=== PATIENT | male | born 1980 | race American Indian/Alaskan Native ===

== ENCOUNTER 2016-03-04 15:18 | Emergency (ER) | payer SELFPAY ==
[2016-03-04 20:30] VITALS: BP 123/86
--- NOTE | 2016-03-04 20:44 | Emergency Department Report ---
ED Upper Extremity Inj HPI - General Chief Complaint: Extremity Injury, Upper Stated Complaint: OBJECT IN FINGER AFTER CUT Time Seen by Provider: 03/04/16 20:39 Source: patient Mode of arrival: Ambulatory Limitations: No Limitations - History of Present Illness Initial Comments: Patient presents with PIP joint on the right [place] digit of hand. He states this happened 2 weeks ago when he was picking up money off of the concrete and scraped his knuckle. He denies redness, warmth, fever, nausea, chills. Complaint: Injury to:: right -: Sudden Other Extremity Injury: Fingers: Right Place: work (he works as a [employer]) Severity scale (0 -10): 2 Worsens With: other (movement of finger) Associated Symptoms: denies other symptoms - Related Data Home Medications Medication Instructions Recorded Confirmed Last Taken Elvitegr/Cobicist/Emtric/Tenof 1 each PO DAILY 07/18/14 03/04/16 07/18/14 09:35 [Stribild Tablet] Previous Rx's Medication Instructions Recorded Last Taken Type Ibuprofen [Motrin 800 MG tab] 800 mg PO BID PRN #20 tablet 03/04/16 Unknown Rx Allergies Allergy/AdvReac Type Severity Reaction Status Date / Time No Known Allergies Allergy Verified 03/04/16 15:33 ED Review of Systems ROS: Stated complaint: OBJECT IN FINGER AFTER CUT Other details as noted in HPI Constitutional: denies: chills, fever Respiratory: denies: cough, shortness of breath, wheezing Cardiovascular: denies: chest pain, palpitations Musculoskeletal: as per HPI. denies: back pain, joint swelling, arthralgia Skin: as per HPI. denies: rash, lesions Neurological: denies: headache, weakness, paresthesias ED Past Medical Hx - Past Medical History Previous Medical History?: Yes Hx HIV: Yes Additional medical history: recurrent abscesses - Surgical History Past Surgical History?: No - Social History Smoking Status: Never Smoker Substance Use Type: None - Medications Home Medications: Home Medications Medication Instructions Recorded Confirmed Last Taken Type Elvitegr/Cobicist/Emtric/Tenof 1 each PO DAILY 07/18/14 03/04/16 07/18/14 09:35 History [Stribild Tablet] Ibuprofen [Motrin 800 MG tab] 800 mg PO BID PRN #20 tablet 03/04/16 Unknown Rx ED Physical Exam - General Limitations: No Limitations General appearance: alert, in no apparent distress - Head Head exam: Present: atraumatic, normocephalic - Eye Eye exam: Present: normal appearance - Respiratory Respiratory exam: Present: normal lung sounds bilaterally. Absent: respiratory distress - Cardiovascular Cardiovascular Exam: Present: regular rate, normal rhythm. Absent: systolic murmur, diastolic murmur, rubs, gallop - GI/Abdominal GI/Abdominal exam: Present: soft, normal bowel sounds - Expanded Upper Extremity Exam Right Shoulder Exam: Present: normal inspection, full ROM Upper Arm exam: Present: normal inspection, full ROM Elbow exam: Present: normal inspection, full ROM Forearm Wrist exam: Present: normal inspection, full ROM Hand Wrist exam: Present: normal inspection, full ROM, other (third digit PIP joint with mild nodule and healing wound approximately 1 mm wide, tender to palpation) Hand L/R Back: 1 - 1mm healing wound Neuro motor exam: Present: wrist extension intact, thumb opposition intact, thumb IP flexion intact, thumb adduction intact, fingers 2-5 abduction intact Neurosensory exam: Present: radial nerve intact, ulnar nerve intact Vascular: Present: normal capillary refill. Absent: vascular compromise - Neurological Exam Neurological exam: Present: alert, oriented X3 - Psychiatric Psychiatric exam: Present: normal affect, normal mood - Skin Skin exam: Present: warm, dry, intact, normal color. Absent: rash ED Course Vital Signs 03/04/16 03/04/16 15:34 20:28 Temperature 98.5 F 98.4 F Pulse Rate 81 77 Respiratory 20 Rate Blood Pressure 115/75 Blood Pressure 123/86 [Right] O2 Sat by Pulse 100 98 Oximetry ED Medical Decision Making - Medical Decision Making Patient presents with what appears to be possibly some scar tissue at fourth digit on right hand at PIP joint after injury. We will give ibuprofen and refer him to an outpatient clinic. - Differential Diagnosis scar tissue, cyst, abscess Critical Care Time: No Critical care attestation.: If time is entered above; I have spent that time in minutes in the direct care of this critically ill patient, excluding procedure time. ED Disposition Clinical Impression: Joint pain in fingers of right hand, Scar tissue Disposition: DISCHARGED TO HOME OR SELFCARE Is pt being admited?: No Does the pt Need Aspirin: No Condition: Stable Instructions: Musculoskeletal Pain (ED) Prescriptions: Ibuprofen [Motrin 800 MG tab] 800 mg PO BID PRN #20 tablet PRN Reason: Pain Referrals: PRIMARY CARE, [Primary Care Provider] - 3-5 Days [facility] [Outside] - 3-5 Days Forms: Work/School Release Form(ED) Time of Disposition: 20:50
== END 2016-03-04 20:52 | disposition home or self-care (01) ==
LOC: ED 15:18
DX: M79.644 Pain in right finger(s) (principal); M62.89 Other specified disorders of muscle; Z21 Asymptomatic human immunodeficiency virus [HIV] infection status; W20.8XXA Other cause of strike by thrown, projected or falling object, initial encounter; Y93.9 Activity, unspecified; Y92.9 Unspecified place or not applicable; Y99.9 Unspecified external cause status
CPT/HCPCS: 99282

== ENCOUNTER 2016-11-17 17:17 | Emergency (ER) | payer SELFPAY ==
--- NOTE | 2016-11-18 02:58 | XRay Report ---
FINAL REPORT EXAM: XR FINGER(S) 2+V RT HISTORY: finger pain, swelling RT RING FINGER COMPARISON: None available. FINDINGS: Three views of the right 4th finger obtained. There hyperextension of the 4th PIP joint. No acute fracture dislocation. Soft tissue swelling at the dorsum of the PIP joint. IMPRESSION: No acute fracture. Hyperextension of the 4th PIP joint which may be positional with mild soft tissue swelling at the dorsum of the joint space.
--- NOTE | 2016-11-18 03:13 | Emergency Department Report ---
Upper Extremity - [facility] Chief Complaint: Extremity Injury, Upper Stated Complaint: RIGHT FINGER INJURY ED Review of Systems ROS: Stated complaint: RIGHT FINGER INJURY Other details as noted in HPI ED Past Medical Hx - Past Medical History Previous Medical History?: Yes Hx HIV: Yes Additional medical history: recurrent abscesses - Surgical History Past Surgical History?: No - Social History Smoking Status: Current Every Day Smoker Substance Use Type: Alcohol, Marijuana, Prescribed - Medications Home Medications: Home Medications Medication Instructions Recorded Confirmed Last Taken Type Elvitegr/Cobicist/Emtric/Tenof 1 each PO DAILY 07/18/14 03/04/16 07/18/14 09:35 History [Stribild Tablet] Ibuprofen [Motrin 800 MG tab] 800 mg PO BID PRN #20 tablet 03/04/16 Unknown Rx Upper Extremity Exam - Exam General: Vital signs noted. No distress. Alert and acting appropriately. ED Course Vital Signs 11/17/16 17:40 Temperature 97.9 F Pulse Rate 69 Respiratory 18 Rate Blood Pressure 118/87 O2 Sat by Pulse 99 Oximetry Critical care attestation.: If time is entered above; I have spent that time in minutes in the direct care of this critically ill patient, excluding procedure time. ED Disposition Condition: Stable Referrals: PRIMARY CARE, [Primary Care Provider] - 3-5 Days
[2016-11-18] MEDS ORDERED: XYLOCAINE 1% MPF 5 mL INFILTRATI ONE (03:38)
[2016-11-18 03:59] VITALS: BP 114/75
== END 2016-11-18 06:20 | disposition home or self-care (01) ==
LOC: ED 17:17
DX: M79.644 Pain in right finger(s) (principal); F17.210 Nicotine dependence, cigarettes, uncomplicated; F12.10 Cannabis abuse, uncomplicated
CPT/HCPCS: 99283

== ENCOUNTER 2017-04-15 02:27 | Emergency (ER) | payer SELFPAY ==
[2017-04-15] MEDS ORDERED: ASPIRIN PO ONE (03:44)
[2017-04-15 03:58] LABS: Basophils % (Auto) 0.4 % (0.0-1.8); Eosinophils % (Auto) 0.8 % (0.0-4.3); Hemoglobin 11.5 gm/dl (11.8-15.2); Lymphocytes # (Auto) 0.8 K/mm3 (1.2-5.4); Lymphocytes % (Auto) 18.6 % (13.4-35.0); Mean Corpuscular HGB Conc 32 % (32-34); Mean Corpuscular Hemoglobin 28 pg (28-32); Mean Corpuscular Volume 88 fl (84-94); Monocytes # (Auto) 0.4 K/mm3 (0.0-0.8); Monocytes % (Auto) 9.9 % (0.0-7.3); Platelet Count 175 K/mm3 (140-440); Red Blood Count 4.11 M/mm3 (3.65-5.03)
[2017-04-15 04:19] LABS: BUN/Creatinine Ratio 17; Blood Urea Nitrogen 12 mg/dL (9-20); Calcium 8.8 mg/dL (8.4-10.2); Hemolysis Index 6
[2017-04-15] MEDS ORDERED: LIDOCAINE VISCOUS 2% PO ONE (04:54)
[2017-04-15] MEDS ORDERED: ALUM-MAG HYDROX-SIMETH 200-200-20MG/5ML PO ONE (04:54)
--- NOTE | 2017-04-15 04:59 | Emergency Department Report ---
ED Chest Pain HPI - General Chief Complaint: Chest Pain Stated Complaint: UPPER GASTIC PAIN Time Seen by Provider: 04/15/17 04:51 Source: patient Mode of arrival: Ambulatory Limitations: No Limitations - History of Present Illness Initial Comments: Patient is a 36-year-old male with no significant past medical history. Patient presented to the ER with substernal chest pain, sharp in nature increase when he swallow. Patient stated that he does have a seated sensation feeling going up and down in his throat. Patient denied any nausea or vomiting. No shortness of breath, fever or cough. MD Complaint: chest pain -: week(s) Onset: during rest Pain Location: substernal Severity scale (0 -10): 4 Quality: sharp Worsens With: eating - Related Data Home Medications Medication Instructions Recorded Confirmed Last Taken Elviteg/Cob/Emtri/Tenofo Disop 1 each PO DAILY 07/18/14 03/04/16 07/18/14 09:35 [Stribild Tablet] Previous Rx's Medication Instructions Recorded Last Taken Type Ibuprofen [Motrin 800 MG tab] 800 mg PO BID PRN #20 tablet 03/04/16 Unknown Rx methOCARBAMOL [Robaxin TAB] 500 mg PO TID #15 tab 11/18/16 Unknown Rx Allergies Allergy/AdvReac Type Severity Reaction Status Date / Time No Known Allergies Allergy Verified 03/04/16 15:33 Heart Score - HEART Score History: Slightly suspicious EKG: Non-specific Age: < 45 Risk factors: No known risk factors Troponin: < normal limit HEART Score: 1 - Critical Actions Critical Actions: 0-3 pts:0.9-1.7%risk of adverse cardiac event.Candidate for discharge ED Review of Systems ROS: Stated complaint: UPPER GASTIC PAIN Other details as noted in HPI Comment: All other systems reviewed and negative Constitutional: denies: chills, fever Respiratory: denies: cough, orthopnea, shortness of breath, SOB with exertion Cardiovascular: chest pain. denies: palpitations, dyspnea on exertion, orthopnea, edema, syncope, paroxysmal nocturnal dyspnea Gastrointestinal: denies: abdominal pain, nausea, vomiting, diarrhea, constipation Musculoskeletal: denies: back pain Neurological: denies: headache, weakness, numbness, paresthesias ED Past Medical Hx - Past Medical History Previous Medical History?: Yes Hx HIV: Yes Additional medical history: recurrent abscesses - Surgical History Past Surgical History?: No - Social History Smoking Status: Never Smoker Substance Use Type: Marijuana - Medications Home Medications: Home Medications Medication Instructions Recorded Confirmed Last Taken Type Elviteg/Cob/Emtri/Tenofo Disop 1 each PO DAILY 07/18/14 03/04/16 07/18/14 09:35 History [Stribild Tablet] Ibuprofen [Motrin 800 MG tab] 800 mg PO BID PRN #20 tablet 03/04/16 Unknown Rx methOCARBAMOL [Robaxin TAB] 500 mg PO TID #15 tab 11/18/16 Unknown Rx ED Physical Exam - General Limitations: No Limitations General appearance: alert, in no apparent distress - Head Head exam: Present: atraumatic, normocephalic, normal inspection - Eye Eye exam: Present: normal appearance, PERRL - ENT ENT exam: Present: normal exam, normal orophraynx, mucous membranes moist - Neck Neck exam: Present: normal inspection. Absent: tenderness, meningismus, full ROM, lymphadenopathy - Respiratory Respiratory exam: Present: normal lung sounds bilaterally. Absent: respiratory distress, wheezes, rales, rhonchi, stridor, chest wall tenderness, accessory muscle use, decreased breath sounds, prolonged expiratory - Cardiovascular Cardiovascular Exam: Present: regular rate, normal rhythm, normal heart sounds - GI/Abdominal GI/Abdominal exam: Present: soft, normal bowel sounds. Absent: distended, tenderness, guarding, rebound, rigid, organomegaly, mass, bruit, pulsatile mass , hernia - Extremities Exam Extremities exam: Present: normal inspection, full ROM, normal capillary refill. Absent: pedal edema, calf tenderness - Back Exam Back exam: Present: normal inspection, full ROM. Absent: tenderness, CVA tenderness (R), CVA tenderness (L), muscle spasm, paraspinal tenderness, vertebral tenderness, rash noted - Neurological Exam Neurological exam: Present: alert, oriented X3, CN II-XII intact, normal gait - Skin Skin exam: Present: warm, intact, normal color ED Course Vital Signs 04/15/17 03:33 Temperature 98.1 F Pulse Rate 78 Respiratory 16 Rate Blood Pressure 119/61 O2 Sat by Pulse 98 Oximetry ED Medical Decision Making - Lab Data Result diagrams: 04/15/17 03:46 04/15/17 03:46 Critical care attestation.: If time is entered above; I have spent that time in minutes in the direct care of this critically ill patient, excluding procedure time. ED Disposition Clinical Impression: Chest pain, GERD (gastroesophageal reflux disease) Disposition: TO HOME OR SELFCARE Is pt being admited?: No Condition: Stable Instructions: Chest Pain (ED), Gastroesophageal Reflux Disease (ED) Referrals: PRIMARY CARE, [Primary Care Provider] - 3-5 Days
[2017-04-15 05:16] LABS: Bilirubin,Urine NEG (Negative); Blood,Urine NEG (Negative); Color,Urine Yellow (Yellow); Mucus,Urine FEW /HPF; Protein,Urine <15 mg/dL mg/dL (Negative)
[2017-04-15 05:42] VITALS: BP 112/70
== END 2017-04-15 05:41 | disposition home or self-care (01) ==
LOC: ED 02:27
DX: K21.9 Gastro-esophageal reflux disease without esophagitis (principal); F12.10 Cannabis abuse, uncomplicated
CPT/HCPCS: 36415; 80048; 81001; 84484; 85025; 93005; 93010; 99284

== ENCOUNTER 2017-05-03 18:35 | Emergency (ER) | payer SELFPAY ==
--- NOTE | 2017-05-03 21:04 | XRay Report ---
FINAL REPORT PROCEDURE: XR CHEST ROUTINE 2V TECHNIQUE: PA and lateral chest radiographs were obtained. CPT 72230 HISTORY: SOB, cough, HIV positive COMPARISON: No prior studies are available for comparison. FINDINGS: Heart: Normal. Mediastinum/Vessels: Normal. Lungs/Pleural space: No infiltrate, effusion, or pneumothorax. Bony thorax: No acute osseous abnormality. Other: IMPRESSION: No pulmonary infiltrates.
[2017-05-03] MEDS ORDERED: ALUM-MAG HYDROX-SIMETH 200-200-20MG/5ML PO ONE (21:21)
[2017-05-03] MEDS ORDERED: PEPCID PO ONE (21:21)
[2017-05-03] MEDS ORDERED: LIDOCAINE VISCOUS 2% PO ONE (21:21)
[2017-05-03 21:46] LABS: Basophils % (Auto) 0.7 % (0.0-1.8); Eosinophils # (Auto) 0.1 K/mm3 (0.0-0.4); Eosinophils % (Auto) 1.2 % (0.0-4.3); Hematocrit 36.5 % (35.5-45.6); Lymphocytes # (Auto) 0.9 K/mm3 (1.2-5.4); Lymphocytes % (Auto) 18.7 % (13.4-35.0); Mean Corpuscular HGB Conc 33 % (32-34); Mean Corpuscular Hemoglobin 29 pg (28-32); Mean Corpuscular Volume 87 fl (84-94); Monocytes # (Auto) 0.5 K/mm3 (0.0-0.8); Monocytes % (Auto) 9.2 % (0.0-7.3); Platelet Count 204 K/mm3 (140-440); Red Blood Count 4.18 M/mm3 (3.65-5.03); Red Cell Distribution Width 14.2 % (13.2-15.2)
[2017-05-03 21:47] LABS: BUN/Creatinine Ratio 13; Blood Urea Nitrogen 8 mg/dL (9-20); Calcium 8.7 mg/dL (8.4-10.2); Hemolysis Index 14
--- NOTE | 2017-05-03 22:45 | Emergency Department Report ---
- General Chief Complaint: Upper Respiratory Infection Stated Complaint: SHORT OF BREATH Time Seen by Provider: 05/03/17 21:00 Source: patient Mode of arrival: Ambulatory Limitations: No Limitations - History of Present Illness Initial Comments: 36-year-old male past medical history HIV not on anti-retroviral medicines self discontinued 3 years ago presents with complaint of oral thrush for nearly one month some discomfort while swallowing shortness of breath and nonproductive cough for nearly 1 month. Cough has been somewhat worse the last 2 weeks. Patient is awake alert and oriented 3 not in acute distress at this time. Describes epigastric esophageal burning sensation worse after coughing and sometimes worse after eating. Denies pleuritic chest pain at rest. Has had nonproductive cough for nearly 3-1/2 weeks. Some subjective chills. Denies any current nausea or vomiting. States he has noticed multiple white plaques and throat consistent with thrush. Patient is a smoker MD Complaint: cough Onset/Timin -: week(s) Severity: moderate Quality: burning Consistency: intermittent Improves With: nothing Worsens With: nothing Associated Symptoms: fever, sore throat, cough Treatments Prior to Arrival: none - Related Data Home Medications Medication Instructions Recorded Confirmed Last Taken Elviteg/Cob/Emtri/Tenofo Disop 1 each PO DAILY 07/18/14 03/04/16 07/18/14 09:35 [Stribild Tablet] Previous Rx's Medication Instructions Recorded Last Taken Type Ibuprofen [Motrin 800 MG tab] 800 mg PO BID PRN #20 tablet 03/04/16 Unknown Rx methOCARBAMOL [Robaxin TAB] 500 mg PO TID #15 tab 11/18/16 Unknown Rx Esomeprazole Magnesium [NexIUM] 40 mg PO QDAY #30 capsule.dr 04/15/17 Unknown Rx Sucralfate 1 gm PO AC #120 tablet 04/15/17 Unknown Rx Albuterol Sulfate [Ventolin Hfa] 1 puff IH Q4H PRN #1 hfa.aer.ad 05/03/17 Unknown Rx Famotidine [Pepcid] 20 mg PO BID PRN #30 tablet 05/03/17 Unknown Rx Levofloxacin [Levaquin TAB] 500 mg PO QDAY #7 tablet 05/03/17 Unknown Rx Nystatin [Nystatin SUSP] 5 ml PO QID #1 bottle 05/03/17 Unknown Rx Phenylephrine/Dm/Acetaminop/GG 10 ml PO Q6H PRN #1 liquid 05/03/17 Unknown Rx [Mucinex Mrnn-Xqh-Pvjduqprcy Lq] Allergies Allergy/AdvReac Type Severity Reaction Status Date / Time No Known Allergies Allergy Verified 03/04/16 15:33 ED Review of Systems ROS: Stated complaint: SHORT OF BREATH Other details as noted in HPI Constitutional: malaise. denies: chills, fever Eyes: denies: eye pain, eye discharge, vision change ENT: throat pain. denies: ear pain Respiratory: cough. denies: shortness of breath, wheezing Cardiovascular: denies: chest pain, palpitations Endocrine: no symptoms reported Gastrointestinal: denies: abdominal pain, nausea, diarrhea Genitourinary: denies: urgency, dysuria Musculoskeletal: denies: back pain, joint swelling, arthralgia Skin: denies: rash, lesions Neurological: denies: headache, weakness, paresthesias Psychiatric: denies: anxiety, depression Hematological/Lymphatic: denies: easy bleeding, easy bruising ED Past Medical Hx - Past Medical History Hx HIV: Yes Additional medical history: recurrent abscesses - Social History Smoking Status: Never Smoker Substance Use Type: None - Medications Home Medications: Home Medications Medication Instructions Recorded Confirmed Last Taken Type Elviteg/Cob/Emtri/Tenofo Disop 1 each PO DAILY 07/18/14 03/04/16 07/18/14 09:35 History [Stribild Tablet] Ibuprofen [Motrin 800 MG tab] 800 mg PO BID PRN #20 tablet 03/04/16 Unknown Rx methOCARBAMOL [Robaxin TAB] 500 mg PO TID #15 tab 11/18/16 Unknown Rx Esomeprazole Magnesium [NexIUM] 40 mg PO QDAY #30 capsule.dr 04/15/17 Unknown Rx Sucralfate 1 gm PO AC #120 tablet 04/15/17 Unknown Rx Albuterol Sulfate [Ventolin Hfa] 1 puff IH Q4H PRN #1 hfa.aer.ad 05/03/17 Unknown Rx Famotidine [Pepcid] 20 mg PO BID PRN #30 tablet 05/03/17 Unknown Rx Levofloxacin [Levaquin TAB] 500 mg PO QDAY #7 tablet 05/03/17 Unknown Rx Nystatin [Nystatin SUSP] 5 ml PO QID #1 bottle 05/03/17 Unknown Rx Phenylephrine/Dm/Acetaminop/GG 10 ml PO Q6H PRN #1 liquid 05/03/17 Unknown Rx [Mucinex Anve-Lvw-Nercehfied Lq] ED Physical Exam - General Limitations: No Limitations General appearance: alert, in no apparent distress - Head Head exam: Present: atraumatic, normocephalic - Eye Eye exam: Present: normal appearance, PERRL, EOMI - ENT ENT exam: Present: mucous membranes moist - Expanded ENT Exam Expanded Throat exam: Positive: tonsillar exudate (white plaques on oropharynx no peritonsillar abscess no [employer] uvula is midline) - Neck Neck exam: Present: normal inspection - Respiratory Respiratory exam: Present: normal lung sounds bilaterally (lungs clear to auscultation bilaterally). Absent: respiratory distress - Cardiovascular Cardiovascular Exam: Present: regular rate, normal rhythm. Absent: systolic murmur, diastolic murmur, rubs, gallop - GI/Abdominal GI/Abdominal exam: Present: soft, normal bowel sounds - Rectal Rectal exam: Present: deferred - Extremities Exam Extremities exam: Present: normal inspection - Back Exam Back exam: Present: normal inspection - Neurological Exam Neurological exam: Present: alert, oriented X3 - Psychiatric Psychiatric exam: Present: normal affect, normal mood - Skin Skin exam: Present: warm, dry, intact, normal color. Absent: rash ED Course Vital Signs 05/03/17 18:48 Temperature 98.3 F Pulse Rate 95 H Respiratory 18 Rate Blood Pressure 118/83 O2 Sat by Pulse 97 Oximetry ED Medical Decision Making - Lab Data Result diagrams: 05/03/17 21:25 05/03/17 21:25 - Medical Decision Making A/P: Acute bronchitis, oral thrush 1- case discussed with Dr. Alves before discharge. Vital signs stable before discharge. PERC Rule negative. pt does not meets SIRS criteria [email or web address] 2- oral Magic mouthwash/oral nystatin for thrush 3- empiric course of Levaquin 500 mg daily for 7 days for acute bronchitis in immunocompromised pt 4- flu swab negative, strep swab negative, chest x-ray unremarkable. CBC and BMP are unremarkable 5- I referred patient to primary care and [facility] for HIV care [email or web address] Critical care attestation.: If time is entered above; I have spent that time in minutes in the direct care of this critically ill patient, excluding procedure time. ED Disposition Clinical Impression: Oral candidiasis Acute bronchitis Qualifiers: Bronchitis organism: unspecified organism Qualified Code(s): J20.9 - Acute bronchitis, unspecified GERD (gastroesophageal reflux disease) Qualifiers: Esophagitis presence: with esophagitis Qualified Code(s): K21.0 - Gastro- esophageal reflux disease with esophagitis Disposition: TO HOME OR SELFCARE Is pt being admited?: No Does the pt Need Aspirin: No Condition: Stable Instructions: Oral Candidiasis (ED), Acute Bronchitis (ED), Human Immunodeficiency Virus Infection (ED), Gastroesophageal Reflux Disease (ED) Additional Instructions: [email or web address] Prescriptions: Albuterol Sulfate [Ventolin Hfa] 1 puff IH Q4H PRN #1 hfa.aer.ad PRN Reason: Cough Famotidine [Pepcid] 20 mg PO BID PRN #30 tablet PRN Reason: Indigestion Levofloxacin [Levaquin TAB] 500 mg PO QDAY #7 tablet Nystatin [Nystatin SUSP] 5 ml PO QID #1 bottle Phenylephrine/Dm/Acetaminop/GG [Mucinex Dkeh-Hgx-Ftrjuicafk Lq] 10 ml PO Q6H PRN #1 liquid PRN Reason: Cough Referrals: [facility] [Outside] - 3-5 Days [facility] [Outside] - 3-5 Days Forms: Work/School Release Form(ED) Time of Disposition: 22:58
[2017-05-04 02:50] VITALS: BP 138/94
== END 2017-05-03 23:10 | disposition home or self-care (01) ==
LOC: ED 18:35
DX: J20.9 Acute bronchitis, unspecified (principal); B37.0 Candidal stomatitis; K21.0 Gastro-esophageal reflux disease with esophagitis
CPT/HCPCS: 36415; 71046; 80048; 82140; 82805; 83615; 85025; 87116; 87400; 87430

== ENCOUNTER 2017-10-05 02:04 | Emergency (ER) | payer SELFPAY ==
[2017-10-05] MEDS ORDERED: TORADOL IV ONE (04:32)
--- NOTE | 2017-10-05 04:34 | Emergency Department Report ---
Blank Doc - Documentation Documentation: Age is 36 year male who is complaining of left flank pain for the past 5 days. Patient states that pain is worse when he moves there is no pain on palpation. Patient denies any urinary symptoms. Patient was seen at the hospital had x-ray of his back but was told was normal and discharged home. Pain is 8 out of 10 in severity. Patient will have a CT of the abdomen and pelvis to rule out obstructive uropathy urinalysis and lab work is been ordered as well. Patient will be reassessed.
[2017-10-05 05:03] LABS: Bilirubin,Urine NEG (Negative); Blood,Urine NEG (Negative); Color,Urine Yellow (Yellow); Mucus,Urine FEW /HPF; Protein,Urine <15 mg/dL mg/dL (Negative)
[2017-10-05 05:10] LABS: WBC,Urine < 1.0 /HPF (0.0-6.0)
[2017-10-05 05:10] LABS: Basophils % (Auto) 0.3 % (0.0-1.8); Eosinophils # (Auto) 0.1 K/mm3 (0.0-0.4); Eosinophils % (Auto) 1.8 % (0.0-4.3); Hematocrit 41.7 % (35.5-45.6); Hemoglobin 14.1 gm/dl (11.8-15.2); Lymphocytes # (Auto) 1.6 K/mm3 (1.2-5.4); Lymphocytes % (Auto) 27.6 % (13.4-35.0); Mean Corpuscular HGB Conc 34 % (32-34); Mean Corpuscular Hemoglobin 30 pg (28-32); Mean Corpuscular Volume 88 fl (84-94); Monocytes # (Auto) 0.6 K/mm3 (0.0-0.8); Monocytes % (Auto) 10.5 % (0.0-7.3); Platelet Count 255 K/mm3 (140-440); Red Blood Count 4.73 M/mm3 (3.65-5.03)
[2017-10-05 05:30] VITALS: BP 121/74
--- NOTE | 2017-10-05 05:51 | Cat Scan Report ---
FINAL REPORT PROCEDURE: CT ABDOMEN PELVIS WO CON TECHNIQUE: Computerized axial tomography of the abdomen and pelvis was performed without intravenous contrast. This study is performed without intravascular contrast material and its sensitivity for abdominal and pelvic pathology, including neoplasms, inflammation, abscess, free fluid, thrombosis, arterial dissection and infarction, is reduced compared with a contrast enhanced study. HISTORY: left flank pain COMPARISON: No prior studies are available for comparison. FINDINGS: Visualized lower thorax: No significant abnormality. Liver: Normal size and attenuation. Spleen: Normal size and attenuation. Gallbladder and biliary system: Normal. Pancreas: Normal. Adrenals: Normal. Kidneys: There are no kidney stones. There is no hydronephrosis.. GI tract: There is no bowel obstruction, colitis or enteritis. The appendix is normal.. Lymph nodes and mesentery: Normal. Vasculature: Normal. Bladder: Normal. Reproductive organs: Normal. Peritoneum: There is no ascites, free air, abscess or adenopathy.. Musculoskeletal structures: No significant abnormality. Other: None. IMPRESSION: There are no kidney stones. There is no hydronephrosis.. There is no bowel obstruction, colitis or enteritis. The appendix is normal.. There is no ascites, free air, abscess or adenopathy.. .
--- NOTE | 2017-10-05 06:27 | Emergency Department Report ---
HPI - General Chief Complaint: Abdominal Pain Time Seen by Provider: 10/05/17 04:29 - HPI HPI: Room 7 The patient is a 36-year-old male presenting with a chief complaint of left flank pain. The patient states for the past 5 days she has had constant pain in his left flank described as a tightness pressure and throbbing. Patient denies any preceding injury. Patient denies dysuria, hematuria or shortness of breath. Patient denies fever. Patient states the pain increases with movement. The patient gives his pain a score of 10/10 Location: Left flank Duration: 5 days Quality: Pressure/throbbing Severity: 10/10 Modifying factors: [see above] Context: [see above] Mode of transportation: The patient drove himself to the emergency department and there are no visitors present ED Past Medical Hx - Past Medical History Previous Medical History?: Yes Hx HIV: Yes Additional medical history: recurrent abscesses - Surgical History Past Surgical History?: No - Family History Family history: no significant - Social History Smoking Status: Never Smoker Substance Use Type: None (denies illicit drug use), Alcohol (rarely) - Medications Home Medications: Home Medications Medication Instructions Recorded Confirmed Last Taken Type Elviteg/Cob/Emtri/Tenofo Disop 1 each PO DAILY 07/18/14 03/04/16 07/18/14 09:35 History [Stribild Tablet] Ibuprofen [Motrin 800 MG tab] 800 mg PO BID PRN #20 tablet 03/04/16 Unknown Rx methOCARBAMOL [Robaxin TAB] 500 mg PO TID #15 tab 11/18/16 Unknown Rx Esomeprazole Magnesium [NexIUM] 40 mg PO QDAY #30 capsule.dr 04/15/17 Unknown Rx Sucralfate 1 gm PO AC #120 tablet 04/15/17 Unknown Rx Albuterol Sulfate [Ventolin Hfa] 1 puff IH Q4H PRN #1 hfa.aer.ad 05/03/17 Unknown Rx Famotidine [Pepcid] 20 mg PO BID PRN #30 tablet 05/03/17 Unknown Rx Nystatin [Nystatin SUSP] 5 ml PO QID #1 bottle 05/03/17 Unknown Rx Phenylephrine/Dm/Acetaminop/GG 10 ml PO Q6H PRN #1 liquid 05/03/17 Unknown Rx [Mucinex Cxmq-Glb-Wrwzkbkdle Lq] levoFLOXacin [Levaquin TAB] 500 mg PO QDAY #7 tablet 05/03/17 Unknown Rx Cyclobenzaprine [Flexeril] 10 mg PO TID PRN #14 tablet 10/05/17 Unknown Rx HYDROcodone/APAP 5-325 [[place] 1 - 2 each PO Q6HR PRN #14 tablet 10/05/17 Unknown Rx 5/325] Ibuprofen [Motrin 800 MG tab] 800 mg PO Q8HR PRN #20 tablet 10/05/17 Unknown Rx ED Review of Systems ROS: Stated complaint: BACK PAIN Other details as noted in HPI Constitutional: denies: fever Eyes: denies: eye pain ENT: denies: throat pain Respiratory: denies: shortness of breath Cardiovascular: denies: chest pain Endocrine: denies: unexplained weight loss Gastrointestinal: denies: abdominal pain Genitourinary: denies: dysuria, hematuria Musculoskeletal: back pain Skin: denies: change in color Neurological: denies: headache Physical Exam - Physical Exam Vital Signs: Vital Signs 10/05/17 10/05/17 10/05/17 03:14 03:35 04:00 Temperature 98.2 F 98.1 F Pulse Rate 77 70 Respiratory 20 18 Rate Blood Pressure 139/89 121/74 Blood Pressure 129/88 [Left] O2 Sat by Pulse 100 100 98 Oximetry Physical Exam: GENERAL: The patient is well-developed well-nourished male lying on stretcher not appearing to be in acute distress. [] HEENT: Normocephalic. Atraumatic. Extraocular motions are intact. Patient has moist mucous membranes. NECK: Supple. Trachea midline CHEST/LUNGS: Clear to auscultation. There is no respiratory distress noted. HEART/CARDIOVASCULAR: Regular. There is no tachycardia. There is no gallop rub or murmur. ABDOMEN: Abdomen is soft, with mild pressure in suprapubic region. Patient has normal bowel sounds. There is no abdominal distention. SKIN: There is no rash. There is no edema. There is no diaphoresis. NEURO: The patient is awake, alert, and oriented. The patient is cooperative. The patient has normal speech MUSCULOSKELETAL: There is no evidence of acute injury. ED Course Vital Signs 10/05/17 10/05/17 10/05/17 03:14 03:35 04:00 Temperature 98.2 F 98.1 F Pulse Rate 77 70 Respiratory 20 18 Rate Blood Pressure 139/89 121/74 Blood Pressure 129/88 [Left] O2 Sat by Pulse 100 100 98 Oximetry ED Medical Decision Making - Lab Data Result diagrams: 10/05/17 04:57 10/05/17 06:30 Laboratory Tests 10/05/17 10/05/17 10/05/17 04:50 04:57 06:30 WBC 5.8 RBC 4.73 Hgb 14.1 Hct 41.7 MCV 88 MCH 30 MCHC 34 RDW 14.0 Plt Count 255 Lymph % (Auto) 27.6 [place] % (Auto) 10.5 H Eos % (Auto) 1.8 Baso % (Auto) 0.3 Lymph # 1.6 [place] # 0.6 Eos # 0.1 Baso # 0.0 Seg Neutrophils % 59.8 Seg Neutrophils # 3.5 D-Dimer Sodium 135 L Potassium 3.5 L Chloride 97.9 L Carbon Dioxide 24 Anion Gap 17 BUN 9 Creatinine 1.0 Estimated GFR > 60 BUN/Creatinine Ratio 9 Glucose 92 Calcium 9.4 Urine Color Yellow Urine Turbidity Clear Urine pH 6.0 Ur Specific [place] 1.020 Urine Protein <15 mg/dl Urine Glucose (UA) Neg Urine Ketones Neg Urine Blood Neg Urine Nitrite Neg Urine Bilirubin Neg Urine Urobilinogen 2.0 Ur Leukocyte Esterase Neg Urine WBC (Auto) < 1.0 Urine RBC (Auto) 3.0 U Epithel Cells (Auto) < 1.0 Urine Mucus Few 10/05/17 06:30 WBC RBC Hgb Hct MCV MCH MCHC RDW Plt Count Lymph % (Auto) [place] % (Auto) Eos % (Auto) Baso % (Auto) Lymph # [place] # Eos # Baso # Seg Neutrophils % Seg Neutrophils # D-Dimer < 135.00 Sodium Potassium Chloride Carbon Dioxide Anion Gap BUN Creatinine Estimated GFR BUN/Creatinine Ratio Glucose Calcium Urine Color Urine Turbidity Urine pH Ur Specific [place] Urine Protein Urine Glucose (UA) Urine Ketones Urine Blood Urine Nitrite Urine Bilirubin Urine Urobilinogen Ur Leukocyte Esterase Urine WBC (Auto) Urine RBC (Auto) U Epithel Cells (Auto) Urine Mucus - Radiology Data Radiology results: report reviewed (CT abdomen and pelvis), image reviewed (CT abdomen and pelvis) Findings [facility] [address] [place] [address] Cat Scan Report Signed Patient: EDISON PETERSEN MR#: [id number] : 1980 Acct:[id number] Age/Sex: 36 / M ADM Date: 10/05/17 Loc: ED Attending Dr: Ordering Physician: NICOLLE ALVARADO MD Date of Service: 10/05/17 Procedure(s) : CT abdomen pelvis wo con Accession Number(s): [id number] cc: NICOLLE ALVARADO MD FINAL REPORT PROCEDURE: CT ABDOMEN PELVIS WO CON TECHNIQUE: Computerized axial tomography of the abdomen and pelvis was performed without intravenous contrast. This study is performed without intravascular contrast material and its sensitivity for abdominal and pelvic pathology, including neoplasms, inflammation, abscess, free fluid, thrombosis, arterial dissection and infarction, is reduced compared with a contrast enhanced study. HISTORY: left flank pain COMPARISON: No prior studies are available for comparison. FINDINGS: Visualized lower thorax: No significant abnormality. Liver: Normal size and attenuation. Spleen: Normal size and attenuation. Gallbladder and biliary system : Normal. Pancreas: Normal. Adrenals: Normal. Kidneys: There are no kidney stones. There is no hydronephrosis.. GI tract: There is no bowel obstruction, colitis or enteritis. The appendix is normal.. Lymph nodes and mesentery: Normal. Vasculature: Normal. Bladder: Normal. Reproductive organs: Normal. Peritoneum: There is no ascites, free air, abscess or adenopathy.. Musculoskeletal structures: No significant abnormality. Other: None. IMPRESSION : There are no kidney stones. There is no hydronephrosis.. There is no bowel obstruction, colitis or enteritis. The appendix is normal.. There is no ascites , free air, abscess or adenopathy.. . Transcribed By: CO Dictated By: DANIEL SAEZ MD Electronically Authenticated By: DANIEL SAEZ MD Signed Date/Time: 10/05/17551 DD/ 1 TD/TT: 10/05/17551 - Differential Diagnosis renal colic, PE, lumbar radiculopathy Critical care attestation.: If time is entered above; I have spent that time in minutes in the direct care of this critically ill patient, excluding procedure time. ED Disposition Clinical Impression: Back pain Disposition: DC-01 TO HOME OR SELFCARE Is pt being admited?: No Does the pt Need Aspirin: No Condition: Stable Instructions: Acute Low Back Pain (ED), Back Pain (ED) Additional Instructions: Return to the emergency department immediately should you develop worsening symptoms, fever, inability to tolerate food or liquid or any other concerns. Prescriptions: Cyclobenzaprine [Flexeril] 10 mg PO TID PRN #14 tablet PRN Reason: Muscle Spasm HYDROcodone/APAP 5-325 [[place] 5/325] 1 - 2 each PO Q6HR PRN #14 tablet PRN Reason: Pain Ibuprofen [Motrin 800 MG tab] 800 mg PO Q8HR PRN #20 tablet PRN Reason: Pain, Moderate (4-6) Referrals: PRIMARY CARE, [Primary Care Provider] - 3-5 Days SABINO ANAYA MD [Staff Physician] - 3-5 Days (Dr. Anaya is an orthopedic surgeon. Please follow up with him for further evaluation) Time of Disposition: 08:15
[2017-10-05 07:53] LABS: BUN/Creatinine Ratio 9; Blood Urea Nitrogen 9 mg/dL (9-20); Calcium 9.4 mg/dL (8.4-10.2); Hemolysis Index 18
== END 2017-10-05 08:28 | disposition home or self-care (01) ==
LOC: ED 02:04
DX: M54.89 Other dorsalgia (principal)
CPT/HCPCS: 36415; 74176; 80048; 81001; 85025; 85379; 96374; 99284; J1885